=== PATIENT | female | born 1955 | race Caucasian/White ===

== ENCOUNTER 2016-08-12 11:12 | Emergency (ER) | payer OTHER | END 2016-08-12 11:52 | disposition left against medical advice (07) | LOC: ER 11:12 | DX: R05 Cough (principal); Z53.21 Procedure and treatment not carried out due to patient leaving prior to being seen by health care provider ==

== ENCOUNTER → 2016-10-11 | Outpatient (CLI) | payer OTHER ==
--- NOTE | 2016-10-11 16:37 | RAD ---
Indication swelling. Grayscale color Doppler and spectral imaging was performed. The examination was targeted to the veins of the lower extremities. Bilaterally the common femoral, femoral and popliteal vessels demonstrate normal flow compressibility and augmentation. No thrombus is seen. The visualized calf veins bilaterally appeared normal. IMPRESSION: Negative bilateral lower extremity venous analysis for DVT
--- NOTE | 2016-10-11 16:58 | RAD ---
Indication lower leg swelling. Grayscale color Doppler and spectral imaging was performed. Examination was targeted to the major arteries of the lower extremities. On the right there is a normal triphasic waveform associated with the common femoral artery. A similar waveform is seen in the deep femoral. There are predominantly biphasic waveforms throughout the superficial femoral artery. A similar waveform is seen in the popliteal artery. Posterior tibial artery waveform is biphasic as is the peroneal. Anterior tibial artery is monophasic. The dorsal pedal artery has a biphasic waveform. On the left there is normal triphasic waveform in the common femoral artery. A biphasic waveform is seen in the deep femoral. A normal triphasic waveform is seen throughout the course of the superficial femoral artery. A similar normal waveform is seen in the popliteal artery. The posterior tibial artery has a biphasic waveform. The peroneal artery is biphasic to triphasic. Anterior tibial artery is monophasic. The dorsal pedal artery is monophasic. IMPRESSION: No high-grade arterial stenosis is seen in the major arteries of either lower extremity. 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
== END | disposition home or self-care (01) ==
LOC: US 15:25
PROVIDERS: ATTEND Nurse Practitioner Family
DX: R60.0 Localized edema (principal)
CPT/HCPCS: 93925; 93970

== ENCOUNTER → 2017-01-31 | Outpatient (CLI) | payer OTHER ==
--- NOTE | 2017-01-31 15:17 | KCIC ---
Bilateral digital screening mammograms: Reason for examination: Routine screening. Comparison is made to previous studies dated 12/22/2015 and 04/28/2014. The skin and nipples show no abnormalities. No abnormal axillary lymph nodes are seen. The breast parenchyma shows scattered fibroglandular density. (Breast density: Category B.) There continues to be a small nodular parenchymal density in the 3:00 B position of the left breast consistent with an intramammary lymph node which is unchanged. There is suggestion of a small nodular density anterior superiorly in the right breast on oblique view measuring approximately 7.8 mm in size. Further evaluation with ultrasound is recommended. There are no other new dominant masses, suspicious calcifications or architectural distortions. Benign calcifications are present. Impression: Small nodule suggested anterior superiorly in the right breast on oblique view measuring 7.8 mm in size. Recommend further evaluation with ultrasound. BI-RADS Category 0: Incomplete. Ultrasound follow-up is recommended. "Our facility is accredited by the [employer] Mammography [employer]." This patient's information has been entered into a reminder system for the patient to be notified with the results of her examination and a target date for the next mammogram. Electronically signed by: Radha Abbott MD (01/31/2017 3:14 PM) [id number]
== END | disposition home or self-care (01) ==
LOC: KCIC MAMMO 14:05
PROVIDERS: ATTEND Family Medicine
DX: Z12.31 Encounter for screening mammogram for malignant neoplasm of breast (principal)
CPT/HCPCS: G0202; 77067

== ENCOUNTER → 2017-02-06 | Outpatient (CLI) | payer OTHER ==
--- NOTE | 2017-02-06 10:35 | RAD ---
Limited ultrasound of the right breast 02/06/2017 Clinical history: Possible nodule seen within the right breast on screening mammogram. A real-time ultrasound examination of the anterior right breast from the 12 to 3:00 position was performed. Multiple images were obtained. Findings: Comparison is made to the patient's mammograms dated 01/31/2017. No solid or cystic mass is seen by ultrasound within the visualized portions of the right breast. Impression: Negative study. No solid or cystic mass is seen within the visualized portions of the right breast by ultrasound. I would recharacterize the patient's mammograms as a BI-RADS category 2 benign findings with a recommendation for routine yearly screening mammography for follow-up. Patient information was entered into the reminder system with a target date for the patient's next screening mammogram of 01/31/2018.
== END | disposition home or self-care (01) ==
LOC: KCIC US 09:56
PROVIDERS: ATTEND Nurse Practitioner Family
DX: R92.8 Other abnormal and inconclusive findings on diagnostic imaging of breast (principal)
CPT/HCPCS: 76641

== ENCOUNTER → 2017-12-12 | Outpatient (CLI) | payer OTHER | END | disposition home or self-care (01) | LOC: US 07:19 | DX: I65.23 Occlusion and stenosis of bilateral carotid arteries (principal) | CPT/HCPCS: 93880 ==

== ENCOUNTER → 2019-07-06 | Outpatient (CLI) | payer OTHER ==
--- NOTE | 2019-07-06 16:53 | KCIC ---
Bilateral digital screening mammograms: Reason for examination: Routine screening. Comparison is made to previous studies dated 01/31/2017 and 12/22/2015. Interpretation was made with the benefit of CAD. The skin and nipples show no abnormalities. No abnormal axillary lymph nodes are seen. The breast parenchyma shows scattered fibroglandular density. (Breast density: Category B.) There are no dominant masses, suspicious calcifications or architectural distortions. Some benign calcifications are present. Impression: No evidence of malignancy. Recommend routine screening. BI-RADS category 2: Benign "Our facility is accredited by the [employer] Mammography [employer]." This patient's information has been entered into a reminder system for the patient to be notified with the results of her examination and a target date for the next mammogram. Electronically signed by: Radha Abbott MD (07/06/2019 4:50 PM) [id number]
== END | disposition home or self-care (01) ==
LOC: KCIC MAMMO 09:32
PROVIDERS: ATTEND Internal Medicine
DX: Z12.31 Encounter for screening mammogram for malignant neoplasm of breast (principal); N64.89 Other specified disorders of breast
CPT/HCPCS: 77067

== ENCOUNTER 2021-05-09 17:53 | Emergency (ER) | payer OTHER | END 2021-05-09 20:02 | disposition left against medical advice (07) | LOC: ER 17:53 | DX: M79.604 Pain in right leg (principal); Z53.21 Procedure and treatment not carried out due to patient leaving prior to being seen by health care provider ==